=== PATIENT | female | born 1990 | race Caucasian/White ===

== ENCOUNTER 2019-07-16 12:12 | Emergency (ER) | payer OTHER, SELFPAY ==
--- NOTE | 2019-07-16 13:09 | RAD ---
PA AND LATERAL CHEST: Date: 07/16/2019 HISTORY: Cough with rib pain. FINDINGS: Heart size and mediastinum are within normal limits. Lungs are clear of infiltrates. No significant b santo findings. IMPRESSION: No active intrathoracic disease. POS: [facility]
[2019-07-16] MEDS ORDERED: Acetaminophen 500 MG TAB ONE (13:13)
== END 2019-07-16 13:55 | disposition home or self-care (01) ==
LOC: ERS 12:12
DX: B34.9 Viral infection, unspecified (principal)
CPT/HCPCS: 71046; 87804

== ENCOUNTER 2020-03-04 13:11 | Day surgery (SDC) | payer OTHER ==
[2020-03-04 13:51] VITALS: BMI 31.2
[2020-03-04 14:06] VITALS: BP 121/67; TEMP 98.8
[2020-03-04 14:20] LABS: Amnisure Internal Control QC ACCEPTABLE (ACCEPTABLE); Amnisure Test No Membranes Rupture (No Rupture)
--- NOTE | 2020-03-04 14:23 | PDOC.LDHP ---
Labor and Delivery H&P Chief complaint: loss of fluid HPI: 29 y/o at 36w2d, patient of Dr. Sevilla, presents with ?LOF. Patient reports that after she got out of the bath tub yesterday, she felt like she had a few trickles. Has worn a panty liner but has not soaked it. Has had some mild cramping. Denies VB, ctx, or other concerns. +FM ROS neg for HEENT, cv, pulm, gi, gu, neuro, psych, skin, musculoskeletal or constitutional symptoms other than mentioned above. OB History Details: 2 term SVDs 1 SAB Current complications: none Past Medical History: HSV Current medications: pre-serge vitamins, other (valacyclovir) Previous surgical history: none Allergies/Adverse Reactions: Allergies Allergy/AdvReac Type Severity Reaction Status Date / Time No Known Allergies Allergy Verified 03/04/20 13:47 Social history: none - Physical Exam Vital signs reviewed and normal: yes General: NAD, resting Lungs: nonlabored breathing Abdomen: gravid Extremeties: no edema FHT: category 1 (140s, mod variability, + accels, no decels) [place] contractions every: None - Assessment 29 y/o at 36w2d with no e/o SROM. Amnisure, SSE negative. status reassuring with reactive NST. - Plan -: D/c home with precautions. Advised to keep all appointments.
[2020-03-04] MEDS ORDERED: FLU VACC QS2020-21(6MOS UP)/PF 60 MCG/0.5 ML SYRINGE IM ONE (15:30)
== END 2020-03-04 14:50 | disposition home health service (06) ==
LOC: L&D/OP 13:11
PROVIDERS: ATTEND Student in an Organized Health Care Education/Training Program
DX: O99.891 Other specified diseases and conditions complicating pregnancy (principal); N89.8 Other specified noninflammatory disorders of vagina; R10.9 Unspecified abdominal pain; O09.293 Supervision of pregnancy with other poor reproductive or obstetric history, third trimester; Z3A.36 36 weeks gestation of pregnancy
CPT/HCPCS: 84112

== ENCOUNTER 2020-03-10 15:18 | Day surgery (SDC) | payer OTHER ==
[2020-03-10 16:07] VITALS: BMI 31.4
[2020-03-10] MEDS ORDERED: Digoxin 0.5 MG/2 ML AMP SLOW IVP SCH (16:15)
--- NOTE | 2020-03-10 17:10 | PDOC.LDHP ---
Labor and Delivery H&P Chief complaint: decreased movement HPI: 29 y/o at 37w1d, patient of Dr. Sevilla, who was sent from clinic for decreased FM. Fetus is growth restricted. Denies VB, LOF, regular ctx, or other concerns. ROS neg for HEENT, CV, pulm, GI, , neuro, psych, skin, musculoskeletal, or constitutional symptoms other than mentioned above. OB History Details: 2 prior 1 SAB Current complications: IUGR Past Medical History: HSV Current medications: pre-serge vitamins, other (valacyclovir) Previous surgical history: none Allergies/Adverse Reactions: Allergies Allergy/AdvReac Type Severity Reaction Status Date / Time No Known Allergies Allergy Verified 03/04/20 13:47 Social history: none - Physical Exam Vital signs reviewed and normal: yes General: NAD, resting Lungs: nonlabored breathing Abdomen: gravid Extremeties: no edema FHT: category 1 (135, mod variability, + accels, no decels) [place] contractions every: rare - Assessment 29 y/o at 37w1d with reassuring status. BPP 03/08. - Plan -: D/c home with precautions. Advised to call clinic for follow up.
--- NOTE | 2020-03-10 17:59 | ULT ---
BIOPHYSICAL PROFILE: History: IUDR, decreased movement. FINDINGS: biophysical profile score is as follows: tone: 2 breathin movement: 2 Amniotic fluid: 2 IMPRESSION: 1. biophysical score of 8 of a possible 8. 2. See the OB limited report for size and dates. POS: OFF
--- NOTE | 2020-03-10 18:29 | ULT ---
LIMITED OB ULTRASOUND: History: Evaluate for size and dates. Decreased movement. IUGR FINDINGS: There is a single viable intrauterine which is in a vertex presentation. Amniotic fluid is visually somewhat low. The amniotic fluid index is 8.6. The placenta is anterior in location. It is a grade III placenta. No previa. heart rate is 143 beats/minute. measurements: BPD 8.5 cm 34 weeks 5 days HC 31.2 cm 34 weeks 6 days AC 29.3 cm 33 weeks 2 days FL 6.7 cm 34 weeks 3 days IMPRESSION: 1. Single viable intrauterine in a vertex presentation. Overall measurements correspond to a gestational age of 34 weeks 2 days. Estimated date of delivery is 04-19-2020. There is no evidence of asymmetric IUGR. These measurements are mildly discrepant from the reported clinical estimated jc e of delivery of 03-30-2020. IUGR would not be excluded as a possibility. 2. The placenta is anterior in location without evidence of previa. 3. Mild oligohydramnios. POS: OFF
[2020-03-11] MEDS ORDERED: FLU VACC QS2020-21(6MOS UP)/PF 60 MCG/0.5 ML SYRINGE IM ONE (09:00)
== END 2020-03-10 17:59 | disposition home or self-care (01) ==
LOC: L&D/OP 15:18
PROVIDERS: ATTEND Student in an Organized Health Care Education/Training Program
DX: O36.8130 Decreased fetal movements, third trimester, not applicable or unspecified (principal); O36.5930 Maternal care for other known or suspected poor fetal growth, third trimester, not applicable or unspecified; O41.03X0 Oligohydramnios, third trimester, not applicable or unspecified; O98.513 Other viral diseases complicating pregnancy, third trimester; B00.9 Herpesviral infection, unspecified; O09.293 Supervision of pregnancy with other poor reproductive or obstetric history, third trimester; Z3A.37 37 weeks gestation of pregnancy
CPT/HCPCS: 59025; 76815; 76819; 99282; J1160

== ENCOUNTER 2020-03-24 19:30 | Inpatient (IN) | payer OTHER ==
[~2020-03-24 19:30] MED LIST: Bupivacaine 0.25% HCL 30 ML VIAL ONE
[2020-03-24 21:25] VITALS: BMI 31.1
[2020-03-24] MEDS ORDERED: Ondansetron PF 4 MG/2 ML Vial IVP PRN (21:35)
[2020-03-24] MEDS ORDERED: HYDROcodone/Acetaminophen 5/325 mg Tablet PO PRN (21:35)
[2020-03-24] MEDS ORDERED: Diphenoxylate HCl/Atropine Tablet PO PRN (21:35)
[2020-03-24] MEDS ORDERED: Promethazine HCl 25 MG/ML VIAL IM PRN (21:35)
[2020-03-24] MEDS ORDERED: Carboprost 250 MCG/ML AMP IM PRN (21:35)
[2020-03-24] MEDS ORDERED: Acetaminophen 500 MG TAB PO PRN (21:35)
[2020-03-24] MEDS ORDERED: hydrALAZINE 20 MG/ML VIAL SLOW IVP PRN (21:35)
[2020-03-24] MEDS ORDERED: Butorphanol Tartrate 1 MG/ML VIAL SLOW IVP PRN (21:35)
[2020-03-24] MEDS ORDERED: Misoprostol 200 MCG TAB PR PRN (21:35)
[2020-03-24] MEDS ORDERED: Ibuprofen 800 MG TAB PO PRN (21:35)
[2020-03-24] MEDS ORDERED: Lidocaine 1% (PF) 30 ML VIAL SC PRN (21:35)
[2020-03-24] MEDS ORDERED: NS / Oxytocin 40 units/1000ml 1,000 ML IV PRN (21:35)
[2020-03-24] MEDS ORDERED: Methylergonovine 0.2 MG/ML VIAL IM PRN (21:35)
[2020-03-24] MEDS ORDERED: NS w/ Oxytocin 10 units 500 ML IV SCH (21:45)
[2020-03-24] MEDS: Lactated Ringer's 1,000 ML IV SCH (21:50)
[2020-03-24] MEDS: Misoprostol 100 MCG TAB VAG SCH (22:15)
[2020-03-24 22:24] LABS: Hemoglobin 12.2 g/dL (12.0-16.0); Mean Corpuscular HGB CONC 34.6 g/dL (32.0-36.0); Mean Corpuscular Volume 83.9 fL (78.0-98.0); Mean Platelet Volume 7.6 fL (7.4-10.4); Platelet Count 238 thou/uL (130-400); RBC Distribution Width 15.4 % (11.5-14.5); White Blood Cell (WBC) Count 11.1 thou/uL (4.8-10.8)
[2020-03-24 23:03] LABS: Syphilis Antibody Nonreactive (Nonreactive); Syphilis Antibody Index 0.03 S/CO (<1.00 Non-Reactive)
[2020-03-24 23:49] LABS: HBSAg Index 0.17 S/CO (0-0.99); Hep B Surf Ag Non-Reactive S/CO (NonReactive)
[2020-03-25] MEDS: Misoprostol 100 MCG TAB VAG SCH ×3 (02:20→17:58)
[2020-03-25] MEDS: Lactated Ringer's 1,000 ML IV SCH ×2 (08:35→17:58)
--- NOTE | 2020-03-25 09:27 | PDOC.LDHP ---
Labor and Delivery H&P Chief complaint: scheduled induction HPI: 29yo A1 at 39w by LMP here for IOL due to GDM and IUGR. Current gestational age (weeks): 39 Due date: 03/30/20 Dating criteria: last menstrual period Grav: 4 Para: 2 Current complications: gestational diabetes, IUGR Abnormal US findings: Yes (EFW < 5%ile) Past Medical History: HSV, hypothyroid Current medications: pre-serge vitamins, iron, other (valtrex, levothyroxine) Previous surgical history: appendectomy Allergies/Adverse Reactions: Allergies Allergy/AdvReac Type Severity Reaction Status Date / Time No Known Allergies Allergy Verified 03/24/20 21:26 Social history: none - Physical Exam Vital signs reviewed and normal: yes General: NAD Heart: RRR Lungs: CTAB Abdomen: gravid Extremeties: no edema FHT: category 2, variable decelerations [place] contractions every: 3-4min - Vaginal Exam cm dilated: 3 Effacement: 50% Station: -2 (arom clear) - OB Labs Blood type: AB RH: positive Antibody Screen: negative HIV: negative RPR: negative HEPSAg: negative 1 hour GCT: positive 3 hour GTT: positive for GDM GBS: negative Urine drug screen: negative Rubella: immune - Assessment L&D Assessment: medically indicated induction - Plan Plan: admit to L&D, cervical ripening, labor augmentation if indicated, informed consent obtained, anesthesia consult for pain management -: Pt declined COVID testing
[2020-03-25] MEDS ORDERED: Fentanyl 4 mcg/Bup 0.1% Cadd 100 ML ONE (12:41)
[2020-03-25] MEDS ORDERED: NS / Oxytocin 40 units/1000ml 1,000 ML ONE (13:30)
[2020-03-25] MEDS ORDERED: Lidocaine 1% (PF) 30 ML VIAL ONE (13:30)
--- NOTE | 2020-03-25 15:36 | PDOC.OPDEL ---
OB Operative/Delivery Note Delivery Dr/Surgeon: Roel Assist: n/a Pre-Delivery Diagnosis: medically indicated induction (IUGR) Procedure/Post Delivery Dx: spontaneous vaginal delivery Weeks gestation: 39 Anesthesia: none - Findings A Sex: female - 1 min: 8 - 5 min: 9 - Additional Findings/Plan Placenta delivered: spontaneous Repaired Obstetrical Laceration: none Estimated blood loss: 200cc Compilations/Other Findings: NC x 1 reduced at perineum Post delivery plan: routine recovery
[2020-03-25] MEDS ORDERED: hydrALAZINE 20 MG/ML VIAL SLOW IVP PRN (16:34)
[2020-03-25] MEDS ORDERED: NS / Oxytocin 40 units/1000ml 1,000 ML IV SCH (16:34)
[2020-03-25] MEDS ORDERED: Lanolin Ointment 7 GM TUBE TOP PRN (16:34)
[2020-03-25] MEDS ORDERED: Bisacodyl 10 MG SUPP PR PRN (16:34)
[2020-03-25] MEDS ORDERED: Promethazine HCl 25 MG/ML VIAL IM PRN (16:34)
[2020-03-25] MEDS ORDERED: Milk Of Magnesia 30 ML UDCUP PO PRN (16:34)
[2020-03-25] MEDS ORDERED: Preparation H Ointment 28 GM TUBE PR PRN (16:34)
[2020-03-25] MEDS ORDERED: diphenhydrAMINE 25 MG CAP PO PRN (16:34)
[2020-03-25] MEDS ORDERED: HYDROcodone/Acetaminophen 5/325 mg Tablet PO PRN ×2 (16:34)
[2020-03-25] MEDS ORDERED: Ondansetron PF 4 MG/2 ML Vial IVP PRN (16:34)
[2020-03-25] MEDS ORDERED: Benzocaine-Menthol 82.5 ML CAN TOP PRN (16:34)
[2020-03-25] MEDS: Ferrous Sulfate 325 MG TAB PO SCH (17:56)
[2020-03-25] MEDS: Ibuprofen 800 MG TAB PO SCH (21:24)
[2020-03-25] MEDS: Docusate Calcium (SURFAK) 240 MG CAP PO SCH (21:25)
[2020-03-26] MEDS: Ibuprofen 800 MG TAB PO SCH ×3 (06:02→21:40)
[2020-03-26] MEDS: Ferrous Sulfate 325 MG TAB PO SCH ×2 (07:36→17:21)
--- NOTE | 2020-03-26 08:28 | PDOC.PP ---
Post Progress Note Post Day #: 1 PO intake tolerated: yes Flatus: yes Ambulation: yes Vital Signs (12 hours) Temp Pulse Resp BP Pulse Ox 03/26/20 08:04 98.1 F 69 20 119/68 97 03/26/20 06:00 98.1 F 69 20 110/56 L 98 03/26/20 01:00 98.1 F 72 20 105/54 L 98 Weight Weight 170 lb - Physical Examination General: NAD Respiratory: non-labored breathing Abdominal: no distention, appropriately TTP Fundus firm & at: umb Neurological: no gross focal deficits Psychiatric: normal affect Result Diagrams: 03/24/20 22:06 Additional Labs: Post Labs Hep Bs Antigen Non-Reactive S/CO (NonReactive) 03/24/20 22:06 Blood Type AB POSITIVE 03/24/20 22:06 - Assessment/Plan PPD1 s/p TSVD VSSAF
[2020-03-26] MEDS ORDERED: Adacel (T-DAP) 0.5 ML SYRINGE IM ONE (09:00)
[2020-03-26] MEDS: Docusate Calcium (SURFAK) 240 MG CAP PO SCH ×2 (09:18→21:40)
[2020-03-26] MEDS: Prenatal Vitamin 1 TAB PO SCH (09:19)
[2020-03-27] MEDS: Ibuprofen 800 MG TAB PO SCH (05:07)
[2020-03-27] MEDS: Docusate Calcium (SURFAK) 240 MG CAP PO SCH (08:59)
[2020-03-27] MEDS: Prenatal Vitamin 1 TAB PO SCH (08:59)
[2020-03-27] MEDS: Ferrous Sulfate 325 MG TAB PO SCH (08:59)
[2020-03-27 09:33] VITALS: BP 90/54; TEMP 98.3
== END 2020-03-27 12:35 | disposition home or self-care (01) | DRG 807 ==
LOC: L&D 20:35 → 3SW 03-25 17:23
PROVIDERS: ADMIT Student in an Organized Health Care Education/Training Program; ATTEND Student in an Organized Health Care Education/Training Program
PROC: 10E0XZZ Delivery of Products of Conception, External Approach (ICD-10-PCS; principal; 2020-03-24)
PROC: 3E033VJ Introduction of Other Hormone into Peripheral Vein, Percutaneous Approach (ICD-10-PCS; 2020-03-24)
DX: O36.5930 Maternal care for other known or suspected poor fetal growth, third trimester, not applicable or unspecified (principal); Z37.0 Single live birth; Z3A.39 39 weeks gestation of pregnancy; O24.429 Gestational diabetes mellitus in childbirth, unspecified control; Z90.49 Acquired absence of other specified parts of digestive tract; E03.9 Hypothyroidism, unspecified; O99.284 Endocrine, nutritional and metabolic diseases complicating childbirth
CPT/HCPCS: 36415; 85027; 86780; 86850; 86900; 86901; 87340; J0595; J2210; J2590; S0020

== ENCOUNTER 2025-01-31 21:18 | Emergency (ER) | payer SELFPAY ==
[2025-01-31] MEDS ORDERED: Pantoprazole 40 MG DR.TAB ONE (22:28)
[2025-01-31] MEDS ORDERED: Lidocaine Viscous Sol 2% 15 ml UD Cup ONE (22:28)
[2025-01-31] MEDS ORDERED: Mag-Al 1200 mg/1200 mg/30 ML UDCUP ONE (22:28)
[2025-01-31 22:53] LABS: #Basophils Less than 0.03 10x3/uL (0.0-0.2); #Eosinophils 0.33 10x3/uL (0.0-0.7); #Monocytes 0.66 10x3/uL (0.11-0.59); #Neutrophils 3.06 10x3/uL (1.40-6.50); %Basophils 0.3 % (0.0-1.0); %Eosinophils 4.3 % (0.0-10.0); %Lymphocytes 47.2 % (21.0-51.0); %Monocytes 8.5 % (0.0-10.0); %Neutrophils 39.4 % (42.0-75.0); Hematocrit 33.2 % (36.0-47.0); Hemoglobin 10.2 g/dL (12.0-16.0); Mean Corpuscular Hemoglobin 21.9 pg (27.0-31.0); Mean Corpuscular Volume 71.4 fL (78.0-98.0); Platelet Count 324 10x3/uL (130-400); Red Blood Cell (RBC) Count 4.65 mill/uL (4.20-5.40); White Blood Cell (WBC) Count 7.74 10x3/uL (4.8-10.8)
[2025-01-31 22:57] LABS: ALT (SGPT) 11 U/L (Less than 34); AST (SGOT) 16 U/L (11-34); Albumin 3.6 g/dL (3.1-4.5); Alkaline Phosphatase 73 U/L (40-110); Anion Gap 12 mmol/L (10-20); BUN (Urea Nitrogen) 16 mg/dL (7.0-18.7); Bilirubin, Total 0.3 mg/dL (0.3-1.2); Calc. Creatinine Clearance 0 mL/min (70-130); Calcium 9.0 mg/dL (7.8-10.44); Carbon Dioxide 22 mmol/L (22-29); Chloride 108 mmol/L (98-107); Globulin 2.8 g/dL (2.4-3.5); Glucose 94 mg/dL (70-105); Lipase 43 U/L (8-78); Potassium 3.4 mmol/L (3.5-5.1); Sodium 139 mmol/L (136-145)
[2025-01-31 22:58] LABS: Bacteria/HPF None Seen HPF (None Seen); CAUTI Indications for Culture Pelvic or flank pain; Glucose, Urine (Dipstick) Normal (Negative); Leukocyte Negative Leu/uL (Negative); Protein, Urine (Dipstick) Negative (Neg-Trace); Specific Gravity, Urine 1.032 (1.002-1.036); WBC/HPF 0-3 HPF (0-3)
[2025-01-31 23:12] LABS: Urine Culture Reflex No No
== END 2025-01-31 23:30 | disposition home or self-care (01) ==
LOC: ERS 21:18
DX: K29.70 Gastritis, unspecified, without bleeding (principal); D64.9 Anemia, unspecified
CPT/HCPCS: 80053; 81001; 83690; 85025; 99284